=== PATIENT | female | born 1930 | race Caucasian/White ===

== ENCOUNTER 2019-01-13 20:28 | Inpatient (IN) ==
[2019-01-13 21:22] LABS: Basophils # 0.1 10*3/uL (0.0-0.2); Basophils % 0.5 % (0.0-0.8); Eosinophils # 0.1 10*3/uL (0.0-0.87); Eosinophils % 0.5 % (0.00-10.9); Hematocrit 37.9 VOL% (35.7-47.0); Hemoglobin 12.5 GM/DL (12.0-16.0); Immature Granulocytes % 0.4 %; Immature Granulocytes Absolute 0.05 #; Lymphocytes # 0.9 10*3/uL (1.4-4.0); Lymphocytes % 7.5 % (21.3-54.2); Mean Corpuscular Volume 92.7 FL (87-102); Mean Platelet Volume 11.1 FL (9.6-12.0); Monocytes % 8.1 % (1.7-12.7); Red Blood Count 4.09 MC/CUMM (3.8-5.5); White Blood Count 12.3 T/CUMM (4-12)
[2019-01-13 21:24] LABS: Platelet Count 162 T/CUMM (130-400)
[2019-01-13 21:38] LABS: Albumin 3.3 G/DL (3.4-5.0); Bilirubin,Total 0.4 MG/DL (0.2-1.0); Calcium 8.7 MG/DL (8.5-10.1); Osmolality,Calculated 282.1 MOS/KG (273-304); Total Protein 6.5 G/DL (6.4-8.3)
[2019-01-14 00:29] LABS: Platelet Estimate Adequate; Polychromasia Few
[2019-01-14] MEDS ORDERED: ACETAMINOPHEN 325 MG TABLET PO PRN (00:42)
[2019-01-14] MEDS ORDERED: ONDANSETRON 4 MG/2 ML VIAL IV PRN (00:42)
[2019-01-14 05:41] LABS: Basophils # 0.1 10*3/uL (0.0-0.2); Basophils % 0.6 % (0.0-0.8); Eosinophils # 0.1 10*3/uL (0.0-0.87); Eosinophils % 0.7 % (0.00-10.9); Hematocrit 36.6 VOL% (35.7-47.0); Hemoglobin 11.9 GM/DL (12.0-16.0); Immature Granulocytes % 0.6 %; Immature Granulocytes Absolute 0.05 #; Lymphocytes # 1.1 10*3/uL (1.4-4.0); Lymphocytes % 12.3 % (21.3-54.2); Mean Corpuscular HGB Conc 32.5 GM/DL (32-36); Mean Corpuscular Volume 92.7 FL (87-102); Mean Platelet Volume 10.6 FL (9.6-12.0); Monocytes % 11.9 % (1.7-12.7); Neutrophils % 73.9 % (38.7-73.9); Platelet Count 162 T/CUMM (130-400); Red Blood Count 3.95 MC/CUMM (3.8-5.5); Red Cell Distribution Width 13.9 % (9.3-17.3); White Blood Count 8.7 T/CUMM (4-12)
[2019-01-14 06:16] LABS: Calcium 8.9 MG/DL (8.5-10.1); Osmolality,Calculated 284.8 MOS/KG (273-304); Risk Ratio 1.96; Total Protein 6.1 G/DL (6.4-8.3)
[2019-01-14 08:02] LABS: CKMB % 1.9 %
[2019-01-14] MEDS ORDERED: ENOXAPARIN 40 MG/0.4 ML SYRINGE SUBCUT SCH (09:00)
[2019-01-14] MEDS ORDERED: ASPIRIN CHEW 81 MG TABLET PO ONE (09:25)
[2019-01-14] MEDS ORDERED: ENOXAPARIN 30 MG/0.3 ML SYRINGE SUBCUT ONE (09:29)
[2019-01-14] MEDS ORDERED: ENOXAPARIN 40 MG/0.4 ML SYRINGE SUBCUT ONE (09:57)
[2019-01-14] MEDS: PANTOPRAZOLE 40 MG TABLET PO SCH (10:16)
[2019-01-14] MEDS: METOPROLOL TARTRATE 25 MG TABLET PO SCH ×2 (10:16→21:26)
[2019-01-14] MEDS: ENOXAPARIN 60 MG/0.6 ML SYRINGE SUBCUT SCH (21:27)
[2019-01-14] MEDS: ROSUVASTATIN 20 MG TABLET PO SCH (21:27)
[2019-01-15 04:47] LABS: Basophils # 0.1 10*3/uL (0.0-0.2); Basophils % 0.9 % (0.0-0.8); Eosinophils # 0.1 10*3/uL (0.0-0.87); Eosinophils % 1.3 % (0.00-10.9); Hematocrit 37.9 VOL% (35.7-47.0); Hemoglobin 12.2 GM/DL (12.0-16.0); Immature Granulocytes % 0.2 %; Immature Granulocytes Absolute 0.02 #; Lymphocytes # 1.4 10*3/uL (1.4-4.0); Lymphocytes % 16.8 % (21.3-54.2); Mean Corpuscular HGB Conc 32.2 GM/DL (32-36); Mean Corpuscular Volume 93.1 FL (87-102); Mean Platelet Volume 11.7 FL (9.6-12.0); Monocytes % 9.4 % (1.7-12.7); Neutrophils % 71.4 % (38.7-73.9); Platelet Count 165 T/CUMM (130-400); Red Blood Count 4.07 MC/CUMM (3.8-5.5); Red Cell Distribution Width 13.9 % (9.3-17.3); White Blood Count 8.2 T/CUMM (4-12)
[2019-01-15 05:23] LABS: Calcium 8.6 MG/DL (8.5-10.1); Osmolality,Calculated 274.7 MOS/KG (273-304)
[2019-01-15] MEDS ORDERED: MAGNESIUM SULF RIDER 2 GM in PREMIX 1 EACH IV PRN (08:12)
[2019-01-15] MEDS: SODIUM CHLORIDE 0.45% 1,000 ML IV SCH ×2 (09:01→19:59)
[2019-01-15] MEDS: POTASSIUM CHLORIDE RIDER 10 MEQ in PREMIX 1 EACH IV PRN ×2 (09:01→10:01)
[2019-01-15] MEDS: ENOXAPARIN 60 MG/0.6 ML SYRINGE SUBCUT SCH (09:01)
[2019-01-15] MEDS: ASPIRIN EC 325 MG TABLET PO SCH (09:02)
[2019-01-15] MEDS: PANTOPRAZOLE 40 MG TABLET PO SCH (09:02)
[2019-01-15] MEDS: METOPROLOL TARTRATE 25 MG TABLET PO SCH (09:02)
[2019-01-15 11:59] LABS: Apearance,Urine CLEAR (Clear); Bilirubin,Urine Negative (Negative); Blood, Urine Small mg/dL (Negative); Glucose,Urine (UA) Negative (Negative); Ketones,Urine Negative (Negative); Mucus,Urine Occasional /LPF (Occasional); Nitrite,Urine Negative (Negative); Protein,Urine Negative; RBC,Urine 3 /HPF (0-4); Urine Color Yellow (Yellow); Urine Specific Gravity 1.013 (1.001-1.035); Urine Urobilinogen < 2.0 EU/DL (0.2-1.0); WBC,Urine <1 /HPF (0-6)
[2019-01-15] MEDS ORDERED: DIAZEPAM 5 MG TABLET PO ONE (13:30)
[2019-01-15] MEDS ORDERED: diphenhydrAMINE CAP 25 MG CAPSULE PO ONE (13:30)
[2019-01-15] MEDS ORDERED: HEPARIN/NACL 0.9% 2 UNITS/ML 1,000 ML IV ONE (14:18)
[2019-01-15] MEDS ORDERED: SODIUM BICARBONATE 2.4 MEQ/5 ML VIAL ONE (14:18)
[2019-01-15] MEDS ORDERED: LIDOCAINE 1% 20 ML VIAL ONE (14:18)
[2019-01-15] MEDS ORDERED: MIDAZOLAM 2 MG/2 ML VIAL ONE (14:40)
[2019-01-15] MEDS ORDERED: fentaNYL 100 MCG/2 ML VIAL ONE (14:41)
[2019-01-15] MEDS ORDERED: ACETAMINOPHEN/CODEINE 300-30 MG TABLET PO PRN (15:18)
[2019-01-15] MEDS ORDERED: NITROGLYCERIN SL 0.4 MG TABLET SL PRN (15:18)
[2019-01-15] MEDS ORDERED: MORPHINE 4 MG/1 ML VIAL IV PRN (15:18)
[2019-01-15] MEDS: ROSUVASTATIN 20 MG TABLET PO SCH (20:41)
[2019-01-16 06:21] LABS: Basophils % 0.6 % (0.0-0.8); Eosinophils # 0.1 10*3/uL (0.0-0.87); Eosinophils % 1.7 % (0.00-10.9); Hematocrit 36.9 VOL% (35.7-47.0); Hemoglobin 12.1 GM/DL (12.0-16.0); Immature Granulocytes % 0.3 %; Immature Granulocytes Absolute 0.02 #; Lymphocytes # 1.1 10*3/uL (1.4-4.0); Lymphocytes % 16.2 % (21.3-54.2); Mean Corpuscular HGB Conc 32.8 GM/DL (32-36); Mean Corpuscular Volume 92.5 FL (87-102); Mean Platelet Volume 11.2 FL (9.6-12.0); Monocytes % 10.8 % (1.7-12.7); Neutrophils % 70.4 % (38.7-73.9); Platelet Count 152 T/CUMM (130-400); Red Blood Count 3.99 MC/CUMM (3.8-5.5); Red Cell Distribution Width 13.4 % (9.3-17.3); White Blood Count 6.6 T/CUMM (4-12)
[2019-01-16 06:47] LABS: Calcium 8.7 MG/DL (8.5-10.1); Osmolality,Calculated 276.4 MOS/KG (273-304)
[2019-01-16] MEDS: ASPIRIN EC 325 MG TABLET PO SCH (08:56)
[2019-01-16] MEDS: PANTOPRAZOLE 40 MG TABLET PO SCH (08:56)
[2019-01-16] MEDS: METOPROLOL SUCCINATE XL 25 MG TABLET PO SCH (08:56)
[2019-01-16] MEDS ORDERED: METOPROLOL TARTRATE 25 MG TABLET PO SCH (09:00)
[2019-01-16] MEDS: SODIUM CHLORIDE 0.45% 1,000 ML IV SCH (15:11)
[2019-01-16] MEDS: ROSUVASTATIN 20 MG TABLET PO SCH (21:46)
[2019-01-17] MEDS: ASPIRIN EC 325 MG TABLET PO SCH (08:41)
[2019-01-17] MEDS: METOPROLOL SUCCINATE XL 25 MG TABLET PO SCH (08:41)
[2019-01-17] MEDS: PANTOPRAZOLE 40 MG TABLET PO SCH (08:41)
[2019-01-17] MEDS: ROSUVASTATIN 20 MG TABLET PO SCH (20:59)
[2019-01-18] MEDS: PANTOPRAZOLE 40 MG TABLET PO SCH (08:40)
[2019-01-18] MEDS: ASPIRIN EC 325 MG TABLET PO SCH (08:40)
[2019-01-18] MEDS: METOPROLOL SUCCINATE XL 25 MG TABLET PO SCH (08:40)
[2019-01-18 13:38] LABS: Calcium 8.7 MG/DL (8.5-10.1)
[2019-01-18] MEDS: ROSUVASTATIN 20 MG TABLET PO SCH (21:23)
[2019-01-19] MEDS ORDERED: TUBERCULIN SKIN TEST 0.1 ML SYRINGE INTRADERM ONE (08:20)
[2019-01-19] MEDS: ASPIRIN EC 325 MG TABLET PO SCH (09:12)
[2019-01-19] MEDS: METOPROLOL SUCCINATE XL 25 MG TABLET PO SCH (09:12)
[2019-01-19] MEDS: PANTOPRAZOLE 40 MG TABLET PO SCH (09:12)
[2019-01-19] MEDS: ROSUVASTATIN 20 MG TABLET PO SCH (21:12)
[2019-01-20] MEDS: PANTOPRAZOLE 40 MG TABLET PO SCH (08:53)
[2019-01-20] MEDS: ASPIRIN EC 325 MG TABLET PO SCH (08:53)
[2019-01-20] MEDS: METOPROLOL SUCCINATE XL 25 MG TABLET PO SCH (08:53)
[2019-01-20] MEDS: ROSUVASTATIN 20 MG TABLET PO SCH (21:07)
[2019-01-21] MEDS: METOPROLOL SUCCINATE XL 25 MG TABLET PO SCH (09:14)
[2019-01-21] MEDS: PANTOPRAZOLE 40 MG TABLET PO SCH (09:14)
[2019-01-21] MEDS: ASPIRIN EC 325 MG TABLET PO SCH (09:15)
[2019-01-21 12:06] VITALS: BP 141/75
== END 2019-01-21 12:00 | disposition swing bed (61) | DRG 287 ==
LOC: N.ED 20:28 → N.EDINP 20:28 → N.TELEN 01-14 01:42 → SUATTDRO 01-15 12:44 → N.ICU 01-15 15:52 → N.TELEN 01-15 21:44
PROVIDERS: ADMIT Internal Medicine; ATTEND Internal Medicine Cardiovascular Disease
PROC: CLCCHCL (ICD-10-PCS; 2019-01-15 15:15)